=== PATIENT | female | born 1970 | race Caucasian/White ===

== ENCOUNTER 2019-11-01 09:57 | Emergency (ER) | payer OTHER ==
[~2019-11-01] VITALS: Ht 160 cm; Wt 79.4 kg
[~2019-11-01 09:57] MED LIST: AMITRIPTYLINE H25 M2 PO; BUTALB-APAP-CA1 EACH PO; COLACE100 MG PO; IBUPROFEN 600600 M1 PO; NOHOMEMEDICATIONS; NORCO 5-325 TA1 EACH PO; PHENERGAN 25 MG25 M1 PO; PROTONIX40 M1 PO; REGLAN 10 MG TA10 MG PO
[2019-11-01] MEDS ORDERED: NEURONTIN 300M300 M2 PO (10:09)
[2019-11-01] MEDS ORDERED: OMEPRAZOLE40 MG PO (10:09)
[2019-11-01 10:58] LABS: ABSOLUTE NEUTROPHILS 2.5 thou/uL (1.4-8.2); BASOPHILS 0.9 % (0.0-2.0); EOSINOPHILS 3.3 % (0.0-3.0); HEMATOCRIT 38.7 % (37.0-47.0); HEMOGLOBIN 12.8 gm/dL (12.0-15.0); LYMPHOCYTES 34.1 % (24.0-44.0); MCH 26.8 pg (26.0-34.0); MCHC 33.2 g/dL (28.0-37.0); MCV 80.7 fL (80.0-100.0); MONOCYTES 8.2 % (1.0-8.0); PLATELET COUNT 267 thou/uL (150-400); POLYS 53.5 % (36.0-66.0); RBC 4.79 mil/uL (4.20-5.00); WBC 4.6 thou/uL (4.0-11.0)
[2019-11-01 11:05] LABS: CALCIUM 9.7 mg/dL (8.5-10.1); CREATININE 0.7 mg/dL (0.6-1.0); POTASSIUM 4.2 mmol/L (3.5-5.1)
[2019-11-01] MEDS ORDERED: LIDOCAINE PAIN1 EACH TRANSDERM (11:50)
[2019-11-01] MEDS ORDERED: DICLOFENAC POTA50 MG PO (11:50)
[2019-11-01 12:00] VITALS: BP 138/96
== END 2019-11-01 12:01 | disposition home or self-care (01) ==
LOC: ER 09:57
PROVIDERS: Emergency Medicine
DX: M79.18 Myalgia, other site (principal); R07.81 Pleurodynia; R07.89 Other chest pain; K21.9 Gastro-esophageal reflux disease without esophagitis; G62.9 Polyneuropathy, unspecified; G43.909 Migraine, unspecified, not intractable, without status migrainosus; Z85.3 Personal history of malignant neoplasm of breast; Z88.8 Allergy status to other drugs, medicaments and biological substances; Z88.5 Allergy status to narcotic agent; Z90.49 Acquired absence of other specified parts of digestive tract; Z98.51 Tubal ligation status; Z79.899 Other long term (current) drug therapy